=== PATIENT | female | born 1945 | race Caucasian/White ===

== ENCOUNTER 2017-02-20 06:24 | Day surgery (SDC) | payer MEDICARE, BC ==
[~2017-02-20 06:24] MED LIST: Buffered Lidocaine 1% SYRIN* 5 ML/SYR SYRINGE INTRADERM ONE; Buffered Lidocaine 1% SYRIN* 5 ML/SYR SYRINGE ONE; Famotidine IV* 10 MG/ML 2 ML (20 mg) IV ONE; Famotidine IV* 10 MG/ML 2 ML (20 mg) ONE; ceFAZolin 2 GM PREMIX(*) 2 GM/50 ML BAG IVPB ONE
[2017-02-20] MEDS ORDERED: Morphine INJ* 2 MG/ML 1 ML SYRINGE IV PRN (06:43)
[2017-02-20] MEDS ORDERED: fentaNYL* 50 MCG/ML 2 ML VIAL (100 MCG VIAL) IV PRN (06:43)
[2017-02-20] MEDS ORDERED: PROCHLORPERAZINE INJ 5 MG/ML 2 ML VIAL IV PRN (06:43)
[2017-02-20] MEDS ORDERED: fentaNYL* 50 MCG/ML 2 ML VIAL (100 MCG VIAL) ONE (07:01)
[2017-02-20] MEDS ORDERED: Midazolam* 1 MG/ML 5 ML VIAL (5 MG) ONE (07:02)
[2017-02-20] MEDS ORDERED: KETAMINE HCL* 50 MG/ML 10 ML VIAL ONE (07:02)
[2017-02-20] MEDS ORDERED: Bupivacaine 0.5% W/EPI SDV* 30 ML VIAL ONE (07:24)
[2017-02-20] MEDS ORDERED: Lidocaine 2% PF * 5 ML VIAL ONE (07:45)
[2017-02-20] MEDS ORDERED: Propofol* 10 MG/ML 20 ML BTL IV PUSH ONE (07:45)
[2017-02-20] MEDS ORDERED: PROCHLORPERAZINE INJ 5 MG/ML 2 ML VIAL ONE (07:45)
[2017-02-20] MEDS ORDERED: Ondansetron INJ* 2 MG/ML VIAL ONE (07:45)
[2017-02-20] MEDS ORDERED: Phenylephrine INJ* 10 MG/ML 1 ML VIAL (10 MG) ONE (07:45)
[2017-02-20] MEDS ORDERED: Ketorolac INJ* 30 MG/ML 1 ML VIAL ONE (08:22)
[2017-02-20] MEDS ORDERED: Morphine INJ* 10 MG/ML 1 ML SYRINGE ONE (08:37)
[2017-02-20] MEDS ORDERED: oxyCODONE/Acetamin 5/325 MG* TAB ONE (09:11)
[2017-02-20] MEDS: oxyCODONE/Acetamin 5/325 MG* TAB PO PRN ×2 (09:12→09:13)
[2017-02-20 10:16] VITALS: BP 149/74
--- NOTE | 2017-02-21 05:31 | OP ---
DATE OF OPERATION: 02/20/17 [facility] DATE OF : 43 SURGEON: Mik Holliday MD ICEBOX WORKER: Krista Morgan RPA ANESTHESIOLOGIST: Chaka Tomlinson MD ANESTHESIA: General. PRE-OP DIAGNOSIS: Painful heterotopic ossification, right hip. POST-OP DIAGNOSIS: Painful heterotopic ossification, right hip. OPERATIVE PROCEDURE: Excision, heterotopic ossification, right hip. ESTIMATED BLOOD LOSS: Less than 20 cc. COMPLICATIONS: None. SPECIMEN: Excised heterotopic ossification. SUMMARY: Ms. Pelayo is a 71-year-old female who had undergone a right total hip arthroplasty back in 2001. She had done quite well, but did form some heterotopic ossification. She had done alright with this but recently has been having more pain about the hip. Previously, steroid injections as well as anti- inflammatories had worked well but this had gotten to the point where she now needed narcotic medication and it was impeding her ability to get around and do the thing she would like to do. We had followed her hip for several years now and it could be seen where x-rays taken earlier this month were identical to x- rays taken over a year ago, therefore I thought that the HO had stabilized. I discussed with her that excising the HO usually will add to weakness with abduction of the hip, causing people to limp and there is always a chance that more HO can occur. We will sometimes do radiation therapy for that but after discussing different modalities, the plan that we came to is we will continue with the anti-inflammatory postoperatively to prevent more from forming. Other risks of surgery such as infection, scar formation, stiffness, DVT and pulmonary embolism were also discussed and she had wished to proceed. DESCRIPTION OF PROCEDURE: The patient was brought to the OR and LMA was placed. She was nicely padded on the pegboard and pegs were placed to ensure that she did not roll off. Right hip was prepped and then draped. Skin over the incision was infiltrated using 0.5% Marcaine with epinephrine and an incision was made using the old scar but only the upper one third of the scar. Incision was carried down through skin and subcutaneous tissues. Few small bleeders encountered were ligated using electrocautery. Fascia was actually in excellent condition and Lopez was used to scrape the soft tissues off of the fascia so that I would have nice access. By palpation, I could feel greater trochanter a soft spot which I presumed to be her abductor musculature and then firm hard bone superior. Incision was made directly over that hard bone and alfaro elevator was then used to come around it so that the soft tissues would be less traumatized by the excision. With peeling this out, muscle actually was in fairly good condition. She had another deeper piece and with my finger over the top side of the greater trochanter then with internal and external rotation , I could feel the impaction and the soft tissues getting squished against another piece which was a bit deeper. Hohmann was placed directly on that and then scraped around the corner and another Hohmann was placed around that corner and knife was used to incise the bursal tissue over the top. Rongeur was used to take out both bone and that bursal tissue. Third piece was found in a similar manner and also excised. With holding my finger within the joint, I could no longer feel any of the bony impaction with the soft tissues and all instrumentation was removed. Wound was copiously pulse lavaged. Fascia was repaired using interrupted #1 Vicryl sutures. Wound was again pulse lavaged and the subcutaneous tissues were repaired in 2 layers using 2-0 Vicryl. Skin was closed using priscilla. Sterile dressing was applied. The patient was then rolled on to the stretcher and was stable on transfer to the recovery room. DISPOSITION/DISCHARGE SUMMARY: Ms. Pelayo is a 71-year-old female just underwent excision of heterotopic ossification from her right hip. She tolerated the procedure well and there were no complications. She is currently rolling towards recovery room. Once she awakes a bit more from her general anesthesia, can tolerate p.o., has her pain well controlled and can void, she will be discharged home. Prescription for Percocet will be e-scribed in. She has instructions to keep her dressing clean, dry and intact for the next 3 days but after that may take her dressing down, cover sutures with Band-Aid, may shower, wash and get it wet, but should not soak it. I would like to see her in the office in 10 to 14 days, remove her priscilla to make sure she is doing well. If there are any problems or if anything odd should occur, there are instructions to give the office a call. [id number]/[facility] [place]: [id number] [facility]ITAL[facility]
== END 2017-02-20 10:18 | disposition home or self-care (01) ==
LOC: OR 06:24
PROVIDERS: ATTEND Orthopaedic Surgery
DX: M61.551 Other ossification of muscle, right thigh (principal); M94.8X5 Other specified disorders of cartilage, thigh; Z96.641 Presence of right artificial hip joint; E11.9 Type 2 diabetes mellitus without complications; Z79.84 Long term (current) use of oral hypoglycemic drugs; I10 Essential (primary) hypertension; E78.5 Hyperlipidemia, unspecified; G47.30 Sleep apnea, unspecified
CPT/HCPCS: A9270-GY; J0690; J0780; J1885; J2250; J2270; J2405; J2704; J3010

== ENCOUNTER 2024-06-21 09:03 | Observation (INO) ==
[~2024-06-21 09:03] MED LIST changes: -Buffered Lidocaine 1% SYRIN* 5 ML/SYR SYRINGE INTRADERM ONE; -Buffered Lidocaine 1% SYRIN* 5 ML/SYR SYRINGE ONE; -Famotidine IV* 10 MG/ML 2 ML (20 mg) IV ONE; -Famotidine IV* 10 MG/ML 2 ML (20 mg) ONE; +Naloxone 0.4 mg VIAL 0.4 mg/ml 1 ml VIAL IV PRN; +Ondansetron 4 mg VIAL 2 MG/ML 2 ml VIAL IV PRN; +Propofol 0 MG/0 ML BTL ONE; -ceFAZolin 2 GM PREMIX(*) 2 GM/50 ML BAG IVPB ONE
[2024-06-21] MEDS ORDERED: ceFAZolin 2 GM PREMIX 2 GM/50 ML BAG ONE (09:19)
[2024-06-21] MEDS ORDERED: Tranexamic Acid 1 GM/100ML BAG 2,000 MG/200 ML BAG IV ONE (09:20)
[2024-06-21 10:35] LABS: Rapid COVID-19 Molecular Undetected (Undetected)
[2024-06-21] MEDS ORDERED: Dexamethasone IV 4 MG/ML VIAL 1 ml VIAL ONE (10:37)
[2024-06-21] MEDS ORDERED: Rocuronium 50 mg VIAL 10 mg/ml 5 ml VIAL (50 mg) ONE ×3 (10:37→11:21)
[2024-06-21] MEDS ORDERED: Propofol 10 MG/ML 20 ML BTL ONE (10:37)
[2024-06-21] MEDS ORDERED: Ondansetron 4 mg VIAL 2 MG/ML 2 ml VIAL ONE (10:37)
[2024-06-21] MEDS ORDERED: Lidocaine 2% PF 5 ML VIAL ONE (10:37)
[2024-06-21] MEDS ORDERED: fentaNYL 250 mcg/5 ml 50 MCG/ML 5 ml VIAL (250 MCG) ONE ×2 (10:38→11:57)
[2024-06-21] MEDS ORDERED: Midazolam 2 mg/2 ml VIAL 1 mg/ml 2 ml VIAL (2 mg) ONE (10:38)
[2024-06-21] MEDS ORDERED: ROPIVACAINE 5 MG/ML 30 ML BTL (0.5%) ONE (10:50)
[2024-06-21] MEDS ORDERED: HYDROmorphone 0.5 MG/0.5 ML SYRINGE ONE ×2 (11:48→13:23)
[2024-06-21] MEDS ORDERED: Magnesium Hydroxide LIQ 30 ML UDC PO PRN (13:49)
[2024-06-21] MEDS ORDERED: Lactulose 30 ml UDC PO PRN (13:49)
[2024-06-21] MEDS ORDERED: Ondansetron ODT 4 mg TAB 4 MG TAB PO PRN (13:49)
[2024-06-21] MEDS ORDERED: Ondansetron 4 mg VIAL 2 MG/ML 2 ml VIAL IV PRN (13:49)
[2024-06-21] MEDS ORDERED: Morphine 2 MG/ML SYRINGE IV PRN (13:49)
[2024-06-21] MEDS ORDERED: Calcium Carb (TUMS) 500 mg CHEW TAB PO PRN (13:49)
[2024-06-21] MEDS: Buffered Lidocaine 1% SYRIN 1 ml INTRADERM ONE (14:08)
[2024-06-21] MEDS: Lactated Ringers 1000 ml BAG 1,000 ML IV SCH ×2 (14:08→16:31)
[2024-06-21] MEDS: Acetaminophen IV 1 GM/100ML 1,000 MG/100 ML BAG IV ONE (14:08)
[2024-06-21] MEDS ORDERED: fentaNYL 100 mcg/2 ml 50 MCG/ML VIAL ONE (14:38)
[2024-06-21] MEDS: fentaNYL 100 mcg/2 ml 50 MCG/ML VIAL IV PRN (14:38)
[2024-06-21] MEDS ORDERED: Labetalol IV 5 MG/ML 20 ml VIAL ONE (15:11)
[2024-06-21] MEDS: Labetalol IV 5 MG/ML 20 ml VIAL IV PUSH PRN (15:16)
[2024-06-21] MEDS: ceFAZolin 2 GM PREMIX 2 GM/50 ML BAG IV SCH (19:58)
[2024-06-21] MEDS: Magnesium Hydroxide LIQ 30 ML UDC PO SCH (19:59)
[2024-06-22 06:37] LABS: Hematocrit 30.9 % (35-45); Hemoglobin 10.3 g/dL (11.5-14.3); Mean Platelet Volume 9.3 fL (7.5-11.2); Platelet Count 404 10^3/uL (150-450)
[2024-06-22 07:29] LABS: Calcium 8.4 mg/dL (8.6-10.3); Creatinine, Serum 1.19 mg/dL (0.51-0.95); Potassium 4.6 mmol/L (3.5-5.0); eGFR CKD-EPI 46.2 (>60)
[2024-06-22] MEDS: Vitamin THERAPEUTIC TAB PO SCH (08:36)
[2024-06-23 05:11] LABS: Hematocrit 30.3 % (35-45); Platelet Count 392 10^3/uL (150-450)
[2024-06-24 05:58] LABS: Hematocrit 28.4 % (35-45); Hemoglobin 9.7 g/dL (11.5-14.3); Mean Platelet Volume 9.8 fL (7.5-11.2); Platelet Count 350 10^3/uL (150-450)
[2024-06-24 10:44] LABS: Calcium 7.7 mg/dL (8.6-10.3); Creatinine, Serum 0.98 mg/dL (0.51-0.95); Potassium 4.2 mmol/L (3.5-5.0); eGFR CKD-EPI 58.3 (>60)
[2024-06-24] MEDS: TRAMADOL 100 MG PO SCH (11:12)
[2024-06-25 06:31] LABS: Hematocrit 27.9 % (35-45); Hemoglobin 9.3 g/dL (11.5-14.3); Mean Platelet Volume 9.4 fL (7.5-11.2); Platelet Count 394 10^3/uL (150-450)
[2024-06-25 08:56] LABS: Calcium 7.6 mg/dL (8.6-10.3); Creatinine, Serum 0.9 mg/dL (0.51-0.95); eGFR CKD-EPI 64.6 (>60)
[2024-06-25 13:45] VITALS: BP 140/56
== END 2024-06-25 16:25 | disposition home or self-care (01) ==
LOC: SSU 09:03 → OR 09:03
PROVIDERS: ADMIT Orthopaedic Surgery Adult Reconstructive Orthopaedic Surgery; ATTEND Orthopaedic Surgery Adult Reconstructive Orthopaedic Surgery